=== PATIENT | male | born 1975 ===

== ENCOUNTER 2017-12-01 09:40 | Outpatient (RCR) | payer BC ==
[2017-09-15 12:30] LABS: PLATELET COUNT, AUTOMATED 345 K/uL (150-450)
--- NOTE | 2017-09-15 12:41 | RADIOLOGY IMAGING REPORT ---
FACILITY: [facility] PATIENT NAME: Dao Mcclendon : 1975 MR: [id number] V: [id number] EXAM DATE: [id number] ORDERING PHYSICIAN: CHRISTINE GRANT TECHNOLOGIST: Location: [facility] [place] Patient: Dao Mcclendon : 1975 Visit/Account:[id number] Date of Sevice: 09/15/2017 Exam type: ORBITS FOREIGN BODY 1 VIEW History: Pre-MRI screening Comparison: None. Findings: No radiopaque metallic foreign bodies project over the orbits IMPRESSION: 1. No radiopaque metallic foreign bodies project over the orbits Report Dictated By: Dee Dee Ceron MD at 09/15/2017 12:35 PM Report E-Signed By: Dee Dee Ceron MD at 09/15/2017 12:36 PM WSN:[email or web address]
--- NOTE | 2017-09-15 15:20 | RADIOLOGY IMAGING REPORT ---
FACILITY: [facility] [place] PATIENT NAME: Dao Mcclendon : 1975 MR: [id number] V: [id number] EXAM DATE: [id number] ORDERING PHYSICIAN: CHRISTINE GRANT TECHNOLOGIST: Location: [facility] - [place] Patient: Dao Mcclendon : 1975 Visit/Account:[id number] Date of Sevice: 09/15/2017 EXAMINATION: MRI Brain without IV contrast MRI Brain with IV contrast HISTORY: Tumor. Radiation treatment planning. COMPARISON: Neck MRI dated 02/12/2017. Brain MRI dated 04/12/2017. TECHNIQUE: Multi-planar, multi-sequence brain MRI was performed before and after IV gadolinium. CONTRAST: 15 mL of IV MultiHance FINDINGS: Brain volume: Normal. Sagittal midline structures: Negative. Ventricles: Negative. Acute ischemic changes: None. Hemorrhage: None. Masses / edema: None. Enhancement: Normal. Young-white: Negative. White matter: Minimal chronic nonspecific white matter changes in the supratentorial brain. Vessels: Negative. Extra-axial: None. Calvarium / scalp: Negative. Skull base: 5.3 x 4.7 x 3.6 cm heterogeneously enhancing mass in the right skull base, similar rober red with 02/12/2017. There is local mass effect on the paranasal sinuses and nasal cavity similar com pared to prior exams. Visualized sinuses / orbits: Rightward nasal septal deviation. Visualized upper neck: Fatty atrophy of the left side of the tongue. Stable small masses in the uppe r carotid sheath is measuring 1.2 x 1.0 x 1.4 cm on the right and 1.8 x 1.1 x 2.3 cm on the left. IMPRESSION: No significant change in the skull base tumors compared with 02/12/2017. Report Dictated By: Audi Garcia MD at 09/15/2017 3:04 PM Report E-Signed By: Audi Garcia MD at 09/15/2017 3:15 PM WSN:[id number]
--- NOTE | 2017-10-21 09:30 | RADIOLOGY IMAGING REPORT ---
FACILITY: [facility] PATIENT NAME: Dao Mcclendon : 1975 MR: [id number] V: [id number] EXAM DATE: ORDERING PHYSICIAN: CHRISTINE GRANT TECHNOLOGIST: Location: [facility] Patient: Dao Mcclendon : 1975 Visit/Account:[id number] Date of Sevice: 10/21/2017 CHEST W/O CONTRAST History: Para ganglioma TECHNIQUE: Contiguous axial images were performed through the chest to the level of the adrenal gla nds. No IV contrast was administered. Coronal and sagittal reformatting was also performed. Dose Lowe ring Technique One of the following dose optimization techniques was utilized in the performance of this exam: Autom ated exposure control; adjustment of the mA and/or kV according to the patient's size; or use of an i terative reconstruction technique. Specific details can be referenced in the facility's radiology C T exam operational policy. COMPARISON STUDIES: Radiation therapy simulation CT of the head neck and upper thorax from October 21, 2017. Lungs / Pleura: There is a 3 mm triangular-shaped area of increased density in the anterolateral li ngula could represent a small nodule versus small scar versus atelectasis.. There is a expansile les ion of the of the lateral aspect of the right fourth rib with a large soft tissue component extending into the lateral aspect of the right upper thorax which will be discussed under the musculoskeletal Lower neck: There is a triangular-shaped calcific density projecting from the left side of the thyro id cartilage extending medially into the larynx. This is incompletely imaged although was present on the prior simulation CT Mediastinum/nodes: negative. Heart and vessels: negative. Musculoskeletal / Body wall: There is an expansile destructive lesion involving the lateral aspect of the right fourth rib with a large soft tissue component extending medially into the lateral aspect of the right upper thorax. This mass measures 3.2 x 5.8 x 5.5 cm is incompletely imaged on the prio r simulation study. Upper abdomen: There are numerous surgical clips seen to the right at the upper abdominal aorta. T here is suggestion of soft tissue nodule on the most inferior image 66 of series 9 although is incomp letely imaged IMPRESSION: There is an expansile destructive lesion involving the lateral aspect the right fourth rib with a lar ge soft tissue component extending medially into the lateral aspect the right upper thorax consistent with neoplasm. This mass is incompletely imaged on the prior simulation study although was present Postsurgical changes in the upper abdomen with suggestion of a soft tissue nodule in the right periao rtic region as described above There is a transitional shaped calcific density projecting in the left side of the thyroid cartilage extending medially into the larynx. This is incompletely imaged on the prior simulation study althou gh was present There is a 3 mm tracer shaped area of increased density anterolateral lingula could represent a small nodule versus small scar versus atelectasis. Report Dictated By: Dee Dee Ceron MD at 10/21/2017 8:19 AM Report E-Signed By: Dee Dee Ceron MD at 10/21/2017 8:35 AM WSN:[email or web address]
[~2017-12-01 09:40] MED LIST: BISO1TAB82 PO; GADOBENATE 529MG/1ML 15ML VIAL IVP ONE
== END 2017-12-02 11:25 | disposition home or self-care (01) ==
LOC: RAON 09:40
PROVIDERS: ATTEND Radiology Radiation Oncology
DX: Z51.0 Encounter for antineoplastic radiation therapy (principal); D44.7 Neoplasm of uncertain behavior of aortic body and other paraganglia; C79.51 Secondary malignant neoplasm of bone; Z92.21 Personal history of antineoplastic chemotherapy; Z79.899 Other long term (current) drug therapy
CPT/HCPCS: 36415; 70030; 70553; 77280; 77336; 77386; 85025; 99203; 99212; A9577; 71250; 77290; 77300; 77301; 77338; 82040; 82247; 82310; 82374; 82435; 82565; 82947; 84075; 84132; 84155; 84295; 84450; 84460; 84520

== ENCOUNTER 2018-02-09 15:23 | Outpatient (RCR) | payer BC ==
[2018-01-29 10:29] LABS: PLATELET COUNT, AUTOMATED 310 K/uL (150-450)
--- NOTE | 2018-01-29 12:45 | RADIOLOGY IMAGING REPORT ---
FACILITY: [facility] [place] PATIENT NAME: Dao Mcclendon : 1975 MR: [id number] V: [id number] EXAM DATE: ORDERING PHYSICIAN: CHRISTINE GRANT TECHNOLOGIST: Location: [facility] Patient: Dao Mcclendon : 1975 Visit/Account:[id number] Date of Sevice: 01/29/2018 EXAMINATION: CT head without IV contrast CT head with IV contrast HISTORY: Paraganglioma. COMPARISON: Brain MRI from 09/15/2017. TECHNIQUE: Contiguous axial images were obtained from the skull base to the vertex before and after IV contrast. Sagittal and coronal reformatted images are also submitted. CONTRAST: 75 mL of IV Isovue 370. One of the following dose optimization techniques was utilized in the performance of this exam: Autom ated exposure control; adjustment of the mA and/or kV according to the patient's size; or use of an i terative reconstruction technique. Specific details can be referenced in the facility's radiology C T exam operational policy. FINDINGS: Brain volume: Normal. Ventricles: Normal. Acute ischemic changes: None. Hemorrhage: None. Masses/edema/enhancement: There is an avidly enhancing lesion below the left jugular bulb measuring 2.0 x 1.4 cm (image 2 series 8), similar to previous exam. Superiorly, this lesion abuts the skull ba se. The enhancing lesion below the right skull base in the upper carotid sheath is visible on the most in ferior images measuring 1.2 x 0.8 cm (image 1 series 3), similar to previous exam. Young-white: Negative. White matter: Normal. Vessels: Negative. Extra-axial: Negative. Calvarium/scalp: Negative. Skull base/visualized face: There is an expansile right skull base lesion, similar to previous MRI a llowing for difference in technique. The lesion is centered in the right sphenoid bone, extending int o the pterygoid processes inferiorly, along the sphenoid wing superiorly and into the right sphenoid sinus medially. This lesion causes mild narrowing of the right vidian canal and foramen rotundum. The re is no narrowing of the right optic canal. The lesion has mixed density, but is mostly groundglass, with some well-defined areas of lysis inferiorly. The lesion measures up to 5.[address], which is s imilar to previous MRI. Enhancement in the lesion is not well visualized by CT. Visualized sinuses/orbits: Negative. IMPRESSION: 1. Bilateral enhancing paragangliomas in the upper carotid sheath, and are similar to previous MRI al lowing for difference in technique. 2. Expansile right skull base lesion is similar to prior exam and is suspicious for a fibro-osseous l esion. This mass causes narrowing of the right vidian canal and foramen rotundum. 3. No acute hemorrhage or CT evidence of acute infarct. Report Dictated By: Jacqueline Sandoval MD at 01/29/2018 12:13 PM Report E-Signed By: Jacqueline Sandoval MD at 01/29/2018 12:41 PM WSN:[email or web address]
--- NOTE | 2018-01-29 14:18 | RADIOLOGY IMAGING REPORT ---
FACILITY: [facility] PATIENT NAME: Dao Mcclendon : 1975 MR: [id number] V: [id number] EXAM DATE: ORDERING PHYSICIAN: CHRISTINE GRANT TECHNOLOGIST: Location: [facility] Patient: Dao Mcclendon : 1975 Visit/Account:[id number] Date of Sevice: 01/29/2018 CHEST W CONTRAST History: para ganglioma follow-up TECHNIQUE: Contiguous axial images were performed through the chest to the level of the adrenal gla nds following the administration of IV contrast. Coronal and sagittal reformatting was also perform ed. Dose Lowering Technique One of the following dose optimization techniques was utilized in the performance of this exam: Autom ated exposure control; adjustment of the mA and/or kV according to the patient's size; or use of an i terative reconstruction technique. Specific details can be referenced in the facility's radiology C T exam operational policy. Contrast: 75 mL Isovue-370 COMPARISON STUDIES: October 21, 2017. Lungs / Pleura: Again noted is the expansile destructive lesion involving the lateral aspect the ri ght fourth rib with a large soft tissue component extending medially into the lateral aspect the righ t upper thorax. This mass now measures 7 x 3.4 x 5.5 cm appears similar in size when compared the pr ior study. There is however now coarse fibrotic stranding with air bronchograms extending peripheral ly from the medial aspect of the right upper lobe. There is thickening of the adjacent major and min or fissure on the right with a small amount of fibrotic stranding also noted in the anterior aspect s uperior segment of the right lower lobe not present previously . The 3 mm nodule in the inferior lingula has remained stable Mediastinum/nodes: negative. Heart and vessels: negative. Musculoskeletal / Body wall: Please see above discussion concerning right fourth rib Upper abdomen: There is a rim-enhancing lobular hypoattenuating mass inferior medial aspect of the ri ght lobe of the liver measuring 2 cm in diameter. This is not appreciated on the prior noncontrast s tudy. Immediately adjacent to this nodule is an exophytic appearing soft tissue nodule measuring 2 c m in diameter and a 1.1 cm soft tissue nodule. An additional 1.2 cm hepatic nodule with thin periphe ral enhancement is also seen in the posterior aspect of the right lobe not appreciated on the prior s tudy. There are several lobular soft tissue nodules in the right upper abdomen. One Projecting just media l to the right adrenal gland measuring 3.8 x 3.5 x 4 cm and is abutting the right dennis the diaphragm and producing marked mass effect on the medial aspect of the inferior vena cava. Just anterior to this is an additional lobular soft tissue nodule on just posterior to the head of t he pancreas measuring 3.5 x 2.4 x 4.8 cm. IMPRESSION: Again noted is expansile destructive lesion involving the lateral aspect right fourth rib with a larg e soft tissue component extending medially into the lateral aspect of the right upper thorax. When m easured in the same tissue plane this mass appears relatively unchanged however there is now coarse f ibrotic stranding with air bronchograms extending peripherally from the medial right upper lobe towar ds this mass lesion. There is also thickening of the adjacent major minor fissures on the right with a small amount of fibrotic stranding in the anterior aspect superior segment right lower lobe 3 mm nodule in the inferior lingula remain stable There is been interval development of hepatic metastases in addition to exophytic appearing soft tiss ue nodules in the right upper quadrant as described above consistent with additional metastases possi patricia mikey in nature Report Dictated By: Dee Dee Ceron MD at 01/29/2018 1:04 PM Report E-Signed By: Dee Dee Ceron MD at 01/29/2018 2:13 PM WSN:[email or web address]
[~2018-02-09 15:23] MED LIST changes: -GADOBENATE 529MG/1ML 15ML VIAL IVP ONE; +IOPAMIDOL 76% 75 ML INFUS BTL 75 ML ONE; +NS 0.9% 150 ML BAG 150 ML ONE
[2018-04-14] MEDS ORDERED: LIDOCAINE/SOD BICARB 8.4% SYR ID PRN (17:00)
[2018-04-14] MEDS ORDERED: NS(*) 0.9% 100 ML BAG 100 ML IVPB PRN (17:00)
[2018-04-14] MEDS ORDERED: DEXTROSE 5%(*) 100 ML BAG 100 ML IVPB PRN (17:00)
== END 2018-04-28 ==
LOC: RAON 15:23
PROVIDERS: ATTEND Radiology Radiation Oncology
DX: D44.7 Neoplasm of uncertain behavior of aortic body and other paraganglia (principal)
CPT/HCPCS: 36415; 70470; 71260; 85025; 99213; Q9967; 82040; 82247; 82310; 82374; 82435; 82565; 82947; 84075; 84132; 84155; 84295; 84450; 84460; 84520

== ENCOUNTER 2018-05-12 10:10 | Outpatient (RCR) | payer BC ==
--- NOTE | 2018-05-07 09:08 | RADIOLOGY IMAGING REPORT ---
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 FINDINGS: Calvarium and bones of the face are intact. No fracture or destructive osseous process. No radiogra phic metallic foreign body overlying the orbits. Surgical clips are seen over the left neck. IMPRESSION: 1. No radiographic foreign body overlying the orbits. 2. Metallic surgical clips overlying the left neck. Report Dictated By: Ghulam Covarrubias MD at 05/07/2018 9:03 AM Report E-Signed By: Ghulam Covarrubias MD at 05/07/2018 9:05 AM WSN:[email or web address]
[2018-05-07 10:45] VITALS: BP 180/130
--- NOTE | 2018-05-07 11:29 | RADIOLOGY IMAGING REPORT ---
FACILITY: [facility] PATIENT NAME: Dao Mcclendon : 1975 MR: [id number] V: [id number] EXAM DATE: ORDERING PHYSICIAN: CHRISTINE GRANT TECHNOLOGIST: Location: [facility] Patient: Dao Mcclendon : 1975 Visit/Account:[id number] Date of Sevice: 05/07/2018 ADDENDUM #[address] of the abdomen and pelvis dated July 08, 2017 has been received for comparison . The enhancing lesions in the liver have increased in size when compared to the prior study. The enha ncing lesions in the form ligament, fissure for the ligamentum teres have also increased in the inter im. Previously there was a 9 x 4 mm enhancing nodule in this location. The enhancing nodules just medial to the inferior right lobe the liver also markedly increased in siz e. Previously there was only a tiny 9 x 4 mm enhancing nodular region in this location additional re troperitoneal masses also markedly increased in size.. The left periaortic mass just above the level of the iliac bifurcation was not present previously.. The left periaortic mass just above the level of the left renal vein is also new when compared to the prior study. Lesions involving the L1 and L4 vertebral bodies and ribs were not apparent on the prior study Report Dictated By: Dee Dee Ceron MD at 05/13/2018 10:26 AM Report E-Signed By: Dee Dee Ceron MD at 05/13/2018 10:39 AM ORIGINAL REPORT ABDOMEN W W/O CONTRAST HISTORY: Hepatic masses ADDITIONAL HISTORY: None. TECHNIQUE: TECHNIQUE: Multiplanar multisequence magnetic resonance imaging of the abdomen with and without intravenous contrast. CONTRAST: 15 mL of MultiHance COMPARISON: CT of the chest January 29, 2018 FINDINGS: Visualized lung bases: Grossly unremarkable. Liver: The previously noted 1.2 cm hepatic nodule with peripheral enhancement on the posterior aspect right lobe of the liver has increased in size and now measures 1.9 cm in diameter. Just above this nodule slightly more medial is an additional 1.4 cm rim-enhancing nodule also in the right lobe. The re are two enhancing nodules in the anterior superior aspect the right lobe largest measuring 1.4 cm. There are enhancing nodules within the falciform ligament one measuring 1.6 cm in diameter one measu ring 1.2 centers in diameter. There is 8 mm enhancing nodule in the lateral aspect of the caudate lobe. Previously noted 2 cm ring -enhancing mass inferior medial right lobe has increased in size now measures 2.8 cm in diameter.. The enhancing nodules projecting just medial to the inferior right lobe have markedly increased in size extending medially and superiorly the conglomerate mass measures approximately 6.3 cm in width 8 .2 cm in AP dimension and 10.2 cm in height and is displacing the inferior vena cava laterally and th e portal vein anteriorly. The mass is also encasing the left renal vein. There is an additional pro bably lobular mass measuring 4.3 cm in AP dimension 3.3 cm in width 4.2 cm in height in the left leonel aortic location. There is an additional 2 x 2 x 1.3 cm left periaortic mass just above the level of the iliac bifurcation Gallbladder: Negative. Bile ducts: Nondistended and unremarkable. Spleen: Negative. Adrenal glands: Negative. Pancreas: The head of the pancreas is draping over one of the large retroperitoneal mass as described above Kidneys: Right kidney surgically absent. Left kidney appears grossly unremarkable Vessels/spaces/nodes: Please see above discussion under the liver section Visualized GI: Grossly unremarkable. Bones/soft tissues: There are numerous abnormal foci of contrast enhancement or restricted diffusion seen throughout the visualized ribs bilaterally throughout the visualized thoracic and lumbar spine. This includes a large area of abnormal enhancement involving the pedicle lamina and right transverse process at L1 and a large focus of abnormal signal intensity in the L4 vertebral body. Innumerable tiny abnormal areas of signal intensity are seen throughout remainder the visualized bones IMPRESSION:Extensive polylobular mass seen in the retroperitoneum just medial to the liver several ot her smaller rectoperineal masses seen in the left periaortic location and two within the falciform li gament consistent with progression of the neoplastic process Extensive osseous metastases Advanced seen hepatic metastases Report Dictated By: Dee Dee Ceron MD at 05/07/2018 10:38 AM Report E-Signed By: Dee Dee Ceron MD at 05/07/2018 11:25 AM WSN:[email or web address]
[~2018-05-12 10:10] MED LIST changes: +DEXTROSE 5%(*) 100 ML BAG 100 ML IVPB PRN; +GADOBENATE 529MG/1ML 15ML VIAL IVP ONE; -IOPAMIDOL 76% 75 ML INFUS BTL 75 ML ONE; +LIDOCAINE/SOD BICARB 8.4% SYR ID PRN; -NS 0.9% 150 ML BAG 150 ML ONE; +NS 0.9% 25 ML BAG 50 ML ONE; +NS(*) 0.9% 100 ML BAG 100 ML IVPB PRN
== END 2018-05-28 09:26 | disposition home or self-care (01) ==
LOC: RAON 10:10
PROVIDERS: ATTEND Radiology Radiation Oncology
DX: D44.7 Neoplasm of uncertain behavior of aortic body and other paraganglia (principal)
CPT/HCPCS: 70030; 74183; 82565; 99203; 99212; A9577